=== PATIENT | male | born 1950 | race African-American/Black ===

== ENCOUNTER 2019-02-01 18:06 | Observation (INO) ==
[2019-02-01 19:38] LABS: Basophils % 0.5 % (0.0-0.8); Eosinophils # 0.2 10*3/uL (0.0-0.87); Eosinophils % 2.7 % (0.00-10.9); Hematocrit 39.9 VOL% (42.0-52.0); Hemoglobin 13.5 GM/DL (14.0-18.0); Immature Granulocytes % 0.2 %; Immature Granulocytes Absolute 0.01 #; Lymphocytes # 2.2 10*3/uL (1.4-4.0); Mean Corpuscular HGB Conc 33.8 GM/DL (32-36); Mean Corpuscular Volume 89.7 FL (87-102); Mean Platelet Volume 10.1 FL (9.6-12.0); Monocytes % 12.9 % (1.7-12.7); Neutrophils % 43.7 % (38.7-73.9); Platelet Count 224 T/CUMM (130-400); Red Blood Count 4.45 MC/CUMM (3.8-5.5); Red Cell Distribution Width 13.4 % (9.3-17.3); White Blood Count 5.6 T/CUMM (4-12)
[2019-02-01 19:48] LABS: Albumin 3.2 G/DL (3.4-5.0); Bilirubin,Total 0.4 MG/DL (0.2-1.0); Calcium 8.7 MG/DL (8.5-10.1); Osmolality,Calculated 287.8 MOS/KG (273-304); Total Protein 7.3 G/DL (6.4-8.3)
[2019-02-01] MEDS ORDERED: NITROGLYCERIN 2% OINT 1 INCH/GM PACK TOP STA (20:21)
[2019-02-01] MEDS ORDERED: ASPIRIN 325 MG TABLET PO STA (20:21)
[2019-02-01] MEDS ORDERED: ONDANSETRON 4 MG/2 ML VIAL IV PRN (20:40)
[2019-02-01] MEDS ORDERED: NICOTINE 21 MG/24 HR PATCH TRANSDERM PRN (20:40)
[2019-02-01] MEDS ORDERED: ACETAMINOPHEN 325 MG TABLET PO PRN (20:40)
[2019-02-01] MEDS ORDERED: MORPHINE 4 MG/1 ML VIAL IV PRN (20:40)
[2019-02-01] MEDS ORDERED: diphenhydrAMINE CAP 25 MG CAPSULE PO PRN (20:40)
[2019-02-01] MEDS ORDERED: GLUCAGON 1 MG VIAL IM PRN (20:44)
[2019-02-01] MEDS ORDERED: DEXTROSE 50% 25 GM/50 ML VIAL IV PRN (20:44)
[2019-02-01 21:09] LABS: Risk Ratio 2.95; Thyroid Stimulating Hormone 0.567 uIU/ml (0.358-3.74); VLDL CHOLESTEROL 14.8 MG/DL
[2019-02-01] MEDS ORDERED: INSULIN GLARGINE 100 UNIT/ML SUBCUT SCH (23:02)
[2019-02-02] MEDS: carvediloL 25 MG TABLET PO SCH ×3 (00:27→17:27)
[2019-02-02] MEDS: PREGABALIN 75 MG CAPSULE PO SCH ×3 (00:27→14:52)
[2019-02-02] MEDS: INSULIN REGULAR 100 UNIT/ML SUBCUT SCH ×4 (00:29→17:27)
[2019-02-02 03:32] LABS: Alanine Aminotransferase 17 U/L (16-61); Albumin 2.7 G/DL (3.4-5.0); Alkaline Phosphatase 101 U/L (45-117); Aspartate Amino Transferase 13 U/L (0-37); Bilirubin,Total < 0.39 MG/DL (0.2-1.0); Blood Urea Nitrogen 11 MG/DL (7-18); Calcium 8.2 MG/DL (8.5-10.1); Estimated Glom Filtration Rate 98 ML/MIN; Glucose 219 MG/DL (74-106); Osmolality,Calculated 288.1 MOS/KG (273-304); Total Protein 6.1 G/DL (6.4-8.3)
[2019-02-02] MEDS ORDERED: lisinopriL 5 MG TABLET PO SCH (09:00)
[2019-02-02] MEDS ORDERED: amLODIPine 10 MG TABLET PO SCH (09:00)
[2019-02-02] MEDS ORDERED: PANTOPRAZOLE 40 MG TABLET PO SCH (09:00)
[2019-02-02] MEDS ORDERED: DULoxetine 30 MG CAPSULE PO SCH (09:00)
[2019-02-02] MEDS ORDERED: ATORVASTATIN 40 MG TABLET PO SCH (09:00)
[2019-02-02] MEDS ORDERED: ASPIRIN EC 81 MG TABLET PO SCH (09:00)
[2019-02-02] MEDS: INSULIN NPH/REGULAR 70/30 100 UNIT/ML SUBCUT SCH ×2 (09:43→17:26)
[2019-02-02 16:36] VITALS: BP 151/72
== END 2019-02-02 19:50 | disposition home or self-care (01) ==
LOC: N.ED 18:06 → N.EDINP 18:06 → N.TELEN 21:32
PROVIDERS: ADMIT Internal Medicine Geriatric Medicine; ATTEND Internal Medicine Geriatric Medicine